=== PATIENT | male | born 1995 | race Caucasian/White ===

== ENCOUNTER 2019-07-25 21:46 | Emergency (ER) | payer OTHER, SELFPAY ==
--- NOTE | ~2019-07-25 | CT_ITS ---
EXAMINATION: CT abdomen pelvis w con EXAM DATE: 07/25/2019 22:44 INDICATION: Right lower quadrant pain. TECHNIQUE: Spiral CT of the abdomen and pelvis was performed following intravenous injection of 100 m L Omnipaque 350. Axial, coronal and sagittal images were reviewed. The dose-length product (DLP) fo r this examination was 1708.78 mGy-cm. The exposure was tailored according to patient size (auto mA exposure control), and iterative reconstruction (ASIR) was used as additional dose reduction techniqu e. There is no prior study for comparison. FINDINGS: The liver, spleen, adrenal glands and pancreas are unremarkable. Gallbladder is unremarkab le. No biliary obstruction. Portal and splenic veins are patent. Kidneys enhance symmetrically. T here is no hydronephrosis. The prostate is unremarkable. The bladder is collapsed at time of imagi ng limiting evaluation. There is no retroperitoneal or pelvic lymphadenopathy. The appendix is normal. The stomach and small bowel are unremarkable. There is expected amount of c olonic stool. No free intraperitoneal gas. The heart is normal in size. There are no pericardial or pleural effusions. The lung bases are unremarkable. There is chronic bilateral L5 spondylolysis with 3 mm anterolisthesis L5 on S1. IMPRESSION: 1. No acute intra-abdominal findings. 2. Chronic L5 spondylolysis, grade 1 anterolisthesis. Reviewed, dictated and finalized at location G.
[2019-07-25 21:51] VITALS: BP 199/113; PULSE 120; RESP 16; TEMP 36.5; O2SAT 98
--- NOTE | 2019-07-25 21:57 | ED.ABDPAIN ---
HPI - Abdominal Pain General Chief Complaint: Abdominal Pain Stated Complaint: think i have an appendicitis Time Seen by Provider: 07/25/19 21:51 History of Present Illness HPI narrative: Patient presents with his girlfriend for right lower abdominal pain since yesterday. He had some fever chills and nausea yesterday, but no vomiting. He said that the pain has progressed that is now 7 or 8 out of 10, worse with palpitation. He also has some skin missing on his left forearm and wrist, from an [employer] accident a week ago, at which time he broke his left hand. The open wounds are healing well, the hand is swollen and he left his splint at home after his shower. He has some chronic leg pain in the right knee, from [place]. MD elicited complaint: abdominal pain Onset (ago): day(s) (2) Pain Consistency: constant Location: RLQ Severity: severe Quality: aching Radiation: none Exacerbating factors: movement Relieving factors: nothing Associated symptoms: nausea and fever Related Data Home Medications Medication Instructions Recorded Confirmed No Home Medications 07/25/19 07/25/19 Allergies Allergy/AdvReac Type Severity Reaction Status Date / Time No Known Allergies Allergy Verified 07/25/19 21:48 Review of Systems Review of Systems: Narrative: CONSTITUTIONAL: he has had fever, chills and sweats EYES: Denies visual changes, redness, or discharge. ENT: Denies rhinorrhea, congestion, sore throat, or otalgia. CARDIOVASCULAR: Denies chest pain, palpitations, or edema. RESPIRATORY: Denies cough or dyspnea. GASTROINTESTINAL: Denies vomiting, or diarrhea. GENITOURINARY: Denies dysuria or hematuria. SKIN: Denies rash or itching. MUSCULOSKELETAL: Denies back pain, joint pain, or myalgia. NEUROLOGIC: Denies headache, numbness, or weakness. PSYCHIATRIC: Denies anxiety or depression. PMFSH Surgical History Surgical History (Updated 07/25/19 @ 22:10 by Anyi Gudino MD) H/O right knee surgery Social History Social History (Updated 07/25/19 @ 22:10 by Anyi Gudino MD) Smoking status: Never smoker Alcohol intake: current Substance use: never Exam Narrative: Exam Narrative: GENERAL: Well-appearing, well-nourished, and in no acute distress.Overweight. HEAD: Normocephalic, atraumatic. EYES: PERRLA and EOMI. ENT: Nares clear, no rhinorrhea or epistaxis. Mucous membranes moist. NECK: Supple. CHEST: Clear to auscultation. No respiratory distress. HEART: Regular rate and rhythm. No murmur heard. Normal peripheral pulses. ABDOMEN: Soft, nontender, nondistended, normal active bowel sounds. EXTREMITIES: Normal range of motion. His left hand is swollen, with open wounds healing by secondary intent. SKIN: Warm, dry NEURO: No focal deficits. Alert and oriented x3. PSYCH: Normal mood and affect. Course Reevaluation(s) Reevaluation #1: Willing to tell the patient's the results of his CAT scan, and to follow-up here if he is worse, and to follow-up with his GI doctor if he just does not get better. He had the lower GI scope last year, and his mother's had numerous bowel problem. I discussed Crohn's and ulcerative colitis, as possible diagnosis with him, and he agrees to follow-up. Date: 07/25/19 Time: 23:15 Vital Signs Vital signs: Vital Signs Temperature 97.7 F 07/25/19 21:51 Pulse Rate 120 H 07/25/19 21:51 Respiratory Rate 16 07/25/19 21:51 Blood Pressure 199/113 H 07/25/19 21:51 Pulse Oximetry 98 07/25/19 21:51 Temperature 97.7 F 07/25/19 21:51 Pulse Rate 120 H 07/25/19 21:51 Respiratory Rate 16 07/25/19 21:51 Blood Pressure 199/113 H 07/25/19 21:51 Pulse Oximetry 98 07/25/19 21:51 MDM - Abdominal Pain MDM Narrative Medical decision making narrative: The patient arrives saying that he thought he had appendicitis. His pain was in the right lower quadrant, and a CAT scan was done. Other diagnoses include ulcerative colitis and Crohn's disease. Diffe
[2019-07-25] MEDS: SODIUM CHLORIDE 0.9% IV 1,000 ML 999 ML IV CONT (22:07)
[2019-07-25] MEDS: ONDANSETRON INJ 4 MG/2 ML VIAL IV PUSH (22:08)
[2019-07-25] MEDS: MORPHINE SULFATE 4 MG/ML INJ IV PUSH (22:08)
[2019-07-25 22:13] LABS: Basophils Absolute Auto 0.1 K/mm3 (0.0-0.1); Basophils Percent Auto 0.5 % (0.2-1.2); Eosinophils Absolute Auto 0.4 K/mm3 (0-0.3); Eosinophils Percent Auto 2.8 % (0-4.4); Hematocrit 43.1 % (42.0-52.0); Immature Granulocyte Absolute 0.14 K/mm3 (0.00-0.031); Immature Granulocyte Percent A 0.9 % (0-0.5); Lymphocytes Absolute Auto 2.77 K/mm3 (0.9-3.2); Lymphocytes Percent Auto 18.5 % (18.3-44.2); Mean Corpuscular HGB Conc 34.8 g/dl (32-36); Mean Corpuscular Hemoglobin 31.1 pg (26-34); Mean Corpuscular Volume 89.4 fl (80-100); Mean Platelet Volume 10.3 fl (7.4-10.4); Monocytes Percent Auto 6.7 % (2.6-8.5); Neutrophils Absolute Auto 10.6 K/mm3 (1.3-6.7); Neutrophils Percent Auto 70.6 % (45.5-73.1); Platelet Count Result 296 k/mm3 (150-375); Red Blood Count 4.82 M/mm3 (4.6-6.20); Red Cell Distribution Width 12.4 % (11.5-14.5)
[2019-07-25 22:26] LABS: Alanine Aminotransferase 38 U/L (4-50); Albumin Level 4.8 g/dL (3.5-5.1); Alkaline Phosphatase 78 U/L (38-126); Aspartate Amino Transferase 35 U/L (17-59); Bilirubin,Total 0.4 mg/dL (0.2-1.3); Blood Urea Nitrogen 16 mg/dL (9-20); Calcium 9.7 mg/dL (8.4-10.2); Carbon Dioxide 26 mmol/L (22-30); Chloride 102 mmol/L (98-107); Estimated Glomerular Filt Rate > 60; Glucose 115 mg/dL (75-110); Lipase 38 U/L (23-300); Potassium 3.8 mmol/L (3.4-5.0); Sodium 137 mmol/L (137-145)
[2019-07-25 23:26] LABS: Add Urine Microscopic? YES; Appearance Urine Clear (Clear); Bilirubin Urine Negative (Negative); Blood Urine Negative (Negative); Color Urine Yellow (Yellow); Glucose Urine UA Negative (Negative); Ketones Urine Negative (Negative); Leukocyte Esterase Ur Negative LEU/UL (Negative); Mucus Urine Rare /lpf; Nitrate Urine Negative (Negative); Protein Urine 1+ mg/dL (Negative); Specific Grav Ur 1.025 (1.001-1.035); Urobilinogen Urine Negative mg/dL (<2.0); WBC Urine 0-3 /hpf
[2019-07-25 23:31] VITALS: BP 141/88; PULSE 84; RESP 19; TEMP 36.2; O2SAT 100
== END 2019-07-25 23:32 | disposition home or self-care (01) ==
PROVIDERS: Emergency Medicine; Emergency Provider Emergency Medicine; PCP Family Medicine Adolescent Medicine
DX: R10.31 Right lower quadrant pain (principal); M43.06 Spondylolysis, lumbar region
CPT/HCPCS: 36415; 74177; 80053; 81001; 83690; 85025; 96361; 96374; 96375; 99284; J2270; J2405; J7030; Q9967